=== PATIENT | female | born 1990 | race Caucasian/White ===

== ENCOUNTER 2025-07-26 12:01 | Emergency (ER) | payer SELFPAY ==
[2025-07-26 12:12] VITALS: BP 123/82; PULSE 66; TEMP 36.8; O2SAT 97; BMI 39.0
[2025-07-26 12:32] LABS: Glucose Urine UA NEGATIVE (NEGATIVE)
[2025-07-26 12:46] LABS: Cast Seen? NONE SEEN #/LPF (NONE SEEN); Crystals Seen? None Seen #/HPF (None Seen); Urine Culture Indicated YES-FRMC
--- OUTSIDE RECORDS SUMMARY | 2025-07-26 12:48 | XMS_ITS | Clinical Summary ---
Author Organization [employer] Address [id number] 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 Name Role Phone Unavailable Primary Care Provider Unavailabl e Social History Tobacco UseTypesPacks/DayYears UsedDateSmoking Tobacco: Never AssessedChildcare AnswerDate UlmgsxqvAqligooiiCtfpbnm13/12/2019EmploymentAnswerDate Recorded VuoxpvpfdbLssharo02/12/2019CommentsUnknownSex and Gender Information ValueDate RecordedSex Assigned at BirthNot on fileLegal UppAfonox31/06/2015 12:00 PM EDTGender IdentityNot on fileSexual OrientationNot on file Plan of Treatment DateTypeDepartmentCare Team (Latest Contact Info)Rybvfxfnldz80/22/2025 8:45 AM ESTOffice Visit [facility] [address] [place] [id number] Simi Mendiola MD [address] [place] [address] 08/06/2025 11:00 AM ESTInitial [facility] [address] [place] [address] Health MaintenanceDue DateLast DoneCommentsDepression Btvnjsnww81/05/2000Tobacco Uluibmffe68/05/2000Adult BMI Hfkdbltxm90/05/2006DTaP,Tdap and Td Vaccines (1 - Tdap)2007Pap Smear2009Influenza Pqkjisj3604/08/2025 Medical Devices Not on file
--- NOTE | 2025-07-26 13:14 | ED_ITS ---
HPI HPI - General Adult General Chief complaint: Urogenital-Female Stated complaint: POSSIBLE UTI Time Seen by Provider: 07/26/25 13:04 Source: patient Mode of arrival: walk-in Limitations: no limitations History of Present Illness HPI narrative: Patient is a 35-year-old female that presents with complaints of 3 days of urinary frequency and a white chunky discharge. She is approximately 30 weeks and 5 days and just moved back from [place] about 5 days ago and is establishing with an OB in [place] at [facility]. She is seeing them Tuesday but could not wait as her symptoms are becoming very uncomfortable. She denies abdominal or pelvic pain, fever, night sweats, or chills. Related Data Previous Rx's ?Medication ?Instructions ?Recorded cephalexin 500 mg capsule 500 mg PO Q6H 7 days #28 cap s 07/26/25 clotrimazole 1 % vaginal cream 1 appful vaginal .Once daily #45 07/26/25 (Clotrimazole-7) grams Allergies Allergy/AdvReac Type Severity Reaction Status Date / Time No Known Drug Allergies Allergy Verified 07/26/25 12:58 Review of Systems ROS Status of ROS 10 or more systems reviewed and unremark able except as noted in history and below PFSH PFSH Social History Little interest or pleasure in doing things: not at all Feeling down, depressed, or hopeless: not at all Exam Narrative Exam Narrative: General: No distress, age-appropriate Skin: Warm, dry, no pallor. No rash. Head: Normocephalic, atraumatic. Neck: Supple, non-tender. Eye: Pupils are equal, round and EOMI. No scleral icterus. Cardiovascular: Regular Rate and Rhythm without murmur, gallop or rub. Respiratory: No accessory muscle use or respiratory distress. Musculoskeletal: Full ROM of all extremities, no calf or popliteal tenderness GI: Abdomen is soft, gravid, non tender to palpation. No masses appreciated. No rebound, guarding, or rigidity noted. Neurological: A&O x4. No cranial nerve dysfunction observed. No truncal ataxia. Moves all extremities. Sensation intact. Psychiatric: Cooperative and interactive. Normal mood and affect. Patient declined vaginal exam. Constitutional Vital Signs, click to edit/add: Last Vital Signs Temp 98.2 F 07/26/25 12:12 Pulse 66 07/26/25 12:12 Resp 18 07/26/25 12:12 BP 123/82 07/26/25 12:12 Pulse Ox 97 07/26/25 12:12 O2 Del Method Room Air 07/26/25 12:12 Documenting provider has reviewed patient's vital signs: yes Course Vital Signs Vital signs: Vital Signs Temperature 98.2 F 07/26/25 12:12 Pulse Rate 66 07/26/25 12:12 Respiratory Rate 18 07/26/25 12:12 Blood Pressure 123/82 07/26/25 12:12 Pulse Oximetry 97 07/26/25 12:12 Oxygen Delivery Method Room Air 07/26/25 12:12 Temperature 98.2 F 07/26/25 12:12 Pulse Rate 66 07/26/25 12:12 Respiratory Rate 18 07/26/25 12:12 Blood Pressure 123/82 07/26/25 12:12 Pulse Oximetry 97 07/26/25 12:12 Oxygen Delivery Method Room Air 07/26/25 12:12 Medical Decision Making [facility] Narrative Medical decision making narrative: This is a 35-year-old female at approximately 30 weeks 5 days gestation presenting with urinary frequency and vaginal discomfort. The patient declined p elvic examination and self-collected vaginal swab after risks, benefits, and alternatives were discussed, stating symptoms are consistent with prior urinary tract and yeast infections. Urinalysis demonstrated small leukocyte esterase, 5?10 WBCs, and moderate bacteria, supporting the diagnosis of acute cystitis in . Given status and symptom burden, empiric treatment was initiated with cephalexin. Although vaginal candidiasis could not be confirmed due to declined examination/testing, the presence of white, chunky discharge and history are suggestive; therefore, empiric treatment with clotrimazole vaginal therapy was provided. The patient is afebrile, hemodynamically stable, without abdominal pain, contractions, vaginal bleeding, or signs of pyelonephritis or lab or. status is reassuring by history. She has established OB follow-up scheduled for Tuesday with [facility] way inspector and is appropriate for outpatient management with strict return precautions. Patient discharged in stable condition with OB follow-up on Tuesday. Antibiotics will be adjusted once urine culture obtained. Differential Diagnosis Differential Diagnosis: UTI, vulvovaginal candidiasis, BV, trichomoniasis, physiologic leukorrhea Lab Data Lab results reviewed: Yes I reviewed the patient's lab results Labs: Lab Results 07/26/25 Range/Units 12:21 Urine Color Yellow (YELLOW) Urine Clarity Clear (CLEAR) Urine pH 7.0 (5.0-9.0) Ur Specific [place] 1.025 (1.005-1.025) Urine Protein Trace (NEG/TRACE) mg/dL Urine Glucose (UA) Negative (NEGATIVE) mg/dL Urine Ketones Negative (NEGATIVE) mg/dL Urine Occult Blood Trace-i (NEGATIVE) Urine Nitrite Negative (NEGATIVE) Urine Bilirubin Negative (NEGATIVE) Urine Urobilinogen 1.0 (0.2-1.0) EU/dL Ur Leukocyte Esterase Small A (NEGATIVE) Urine RBC 0-2 (0-2) #/HPF Urine WBC 5-10 A (NONE SEEN) #/HPF Ur Squamous Epith Cells Moderate A (NONE/RARE) #/LPF Urine Crystals None seen (None Seen) #/HPF Urine Bacteria Moderate A (NONE SEEN) #/HPF Urine Casts None seen (NONE SEEN) #/LPF Urine Mucus None seen (NONE SEEN) Ur Culture Indicated? Yes-[facility] Discharge Plan Discharge Chief Complaint: Urogenital-Female Clinical Impression: Urinary tract infection, Yeast infection, Patient Disposition: Home, Self-Care Time of Disposition Decision: 13:18 Condition: Good Mode of Transportation: Private Vehicle Prescriptions / Home Meds: New cephalexin 500 mg capsule 500 mg PO Q6H 7 Days Qty: 28 0RF clotrimazole [Clotrimazole-7] 1 % cream 1 appful vaginal .Once daily Qty: 45 0RF Print Language: Faroese Instructions: Yeast Infection (ED), Urinary Tract Infection in (ED) Additional Instructions: Diagnosis: * Urinary tract infection in * Vaginal yeast infection * Intrauterine at 30 weeks 5 days approximately Medications * Cephalexin (Keflex) * Take 500 mg by mouth every 6 hours for 7 days * Take with food if stomach upset occurs * Finish the entire course, even if symptoms improve * Clotrimazole vaginal cream (7-day treatment) * Insert 1 applicatorful vaginally at bedtime for 7 days * Complete the full course * Some vaginal discharge or mild irritation may occur Home Care Instructions * Drink plenty of fluids * Avoid douching or using scented soaps in the genital area * Wear loose, breathable cotton underwear * Avoid intercourse until symptoms improve * Continue vitamins as prescribed Follow-Up * Keep your scheduled appointment with [facility] REC[facility] ADMINISTRATOR at [facility] on Tuesday * Your urine culture results may require antibiotic adjustment; we will call if change is needed Return to the Emergency Department Immediately if You Experience: * Fever or chills * Flank or back pain * Worsening urinary symptoms or inability to urinate * Abdominal pain, pelvic pain, or contractions * Vaginal bleeding or leaking fluid * Decreased movement * Persistent or worsening symptoms despite treatment Referrals: Physician,Non-Staff, [Primary Care Provider] - 1 week Discharge Date/Time: 07/26/25 13:51
== END 2025-07-26 13:51 | disposition home or self-care (01) ==
PROVIDERS: Emergency Provider Emergency Medicine
DX: O23.43 Unspecified infection of urinary tract in pregnancy, third trimester (principal); N39.0 Urinary tract infection, site not specified; Z3A.30 30 weeks gestation of pregnancy; O98.813 Other maternal infectious and parasitic diseases complicating pregnancy, third trimester; B37.9 Candidiasis, unspecified
CPT/HCPCS: 81001; 87086; 99283